=== PATIENT | female | born 1945 | race Caucasian/White ===

== ENCOUNTER → 2017-02-21 | Outpatient (CLI) | payer MEDICARE, OTHER ==
--- NOTE | 2017-02-21 09:29 | RADIOLOGY REPORT (SQ) ---
EXAM DESCRIPTION: CT ABD/PELVIS WITH IV ORAL COMPLETED DATE/TIME: 02/21/2017 8:51 am REASON FOR STUDY: LLQ PAIN (R10.32) R10.32 LEFT LOWER QUADRANT PAIN COMPARISON: 03/23/2014 TECHNIQUE: CT scan of the abdomen and pelvis performed using helical scanning technique with dynamic intravenous contrast injection. No oral contrast. Images reviewed with lung, soft tissue, and bone windows. Reconstructed coronal and sagittal MPR images reviewed. Delayed images for evaluation of the urinary system also acquired. All images stored on PACS. All CT scanners at this facility use dose modulation, iterative reconstruction, and/or weight based d osing when appropriate to reduce radiation dose to as low as reasonably achievable (ALARA). [facility]: Dose Right [facility]: CareDose [facility]: Dose Right [facility]: Teradose 4D [facility]: [employer]Rent CONTRAST TYPE AND DOSE: contrast/concentration: Isovue 370.00 mg/ml; Total Contrast Delivered: 56.0 ml; Total Saline Delivered: 65.0 ml RENAL FUNCTION: BUN 23, creatinine 0.92 RADIATION DOSE: Up-to-date CT equipment and radiation dose reduction techniques were employed. CTDIv ol: 2.9 - 3.3 mGy. DLP: 290 mGy-cm.. LIMITATIONS: None. FINDINGS: LOWER CHEST: No significant findings. No nodules or infiltrates. LIVER: Normal size. No masses. No dilated ducts. SPLEEN: Normal size. No focal lesions. PANCREAS: No masses. No significant calcifications. No adjacent inflammation or peripancreatic fluid collections. Pancreatic duct not dilated. GALLBLADDER: No identified stones by CT criteria. No inflammatory changes to suggest cholecystitis. ADRENAL GLANDS: No significant masses or asymmetry. RIGHT KIDNEY AND URETER: No solid masses. There are numerous right renal cysts. There are small no nobstructing stones. No hydronephrosis or hydroureter. LEFT KIDNEY AND URETER: No solid masses. There are numerous left renal cysts. There are small nono bstructing stones. No hydronephrosis or hydroureter. AORTA AND VESSELS: The aorta demonstrates atherosclerotic change. No aneurysmal dilatation. Celiac axis, SMA and renal arteries are patent. RETROPERITONEUM: No retroperitoneal adenopathy, hemorrhage or masses. BOWEL AND PERITONEAL CAVITY: No masses or inflammatory changes. No free fluid or peritoneal masses. There is diverticular change in the sigmoid colon. No acute diverticulitis. APPENDIX: Surgically absent. PELVIS: No mass. No free fluid. Normal bladder. ABDOMINAL WALL: No masses. No hernias. BONES: No significant or acute findings. OTHER: No other significant finding. IMPRESSION: NO SIGNIFICANT OR ACUTE FINDING IN THE ABDOMEN OR PELVIS ON CT SCAN WITH IV CONTRAST. TECHNICAL DOCUMENTATION: JOB ID: [id number] Quality ID # [id number]: Final reports with documentation of one or more dose reduction techniques (e.g., Au tomated exposure control, adjustment of the mA and/or kV according to patient size, use of iterative reconstruction technique) 2010 [employer]- All Rights Reserved
== END ==
LOC: RAD 07:50
PROVIDERS: ATTEND Internal Medicine Geriatric Medicine
DX: R10.32 Left lower quadrant pain (principal)
CPT/HCPCS: 74177

== ENCOUNTER → 2018-06-04 | Outpatient (CLI) | payer MEDICARE, OTHER ==
--- NOTE | 2018-06-04 09:34 | RADIOLOGY REPORT (SQ) ---
EXAM DESCRIPTION: CT ABD/PELVIS WITH IV ORAL COMPLETED DATE/TIME: 06/04/2018 8:44 am REASON FOR STUDY: LOWER ABD PAIN (R10.0) R10.0 ACUTE ABDOMEN COMPARISON: 02/21/2017 TECHNIQUE: CT scan of the abdomen and pelvis performed using helical scanning technique with dynamic intravenous contrast injection. No oral contrast. Images reviewed with lung, soft tissue, and bone windows. Reconstructed coronal and sagittal MPR images reviewed. Delayed images for evaluation of the urinary system also acquired. All images stored on PACS. All CT scanners at this facility use dose modulation, iterative reconstruction, and/or weight based d osing when appropriate to reduce radiation dose to as low as reasonably achievable (ALARA). [facility]: Dose Right [facility]: CareDose [facility]: Dose Right [facility]: Teradose 4D [facility]: [employer] CONTRAST TYPE AND DOSE: contrast/concentration: Isovue 350.00 mg/ml; Total Contrast Delivered: 62.0 ml; Total Saline Delivered: 65.0 ml 62 cc Omnipaque 350- low osmolar. RENAL FUNCTION: Creatinine 0.89, BUN 19 RADIATION DOSE: CT Rad equipment meets quality standard of care and radiation dose reduction techniq ues were employed. CTDIvol: 3.2 - 3.7 mGy. DLP: 331 mGy-cm.. LIMITATIONS: None. FINDINGS: LOWER CHEST: No significant findings. No nodules or infiltrates. LIVER: Normal size. No masses. No dilated ducts. SPLEEN: Normal size. No focal lesions. PANCREAS: No masses. No significant calcifications. No adjacent inflammation or peripancreatic fluid collections. Pancreatic duct not dilated. GALLBLADDER: Decompressed. No radiopaque gallstones. ADRENAL GLANDS: No significant masses or asymmetry. RIGHT KIDNEY AND URETER: No solid masses. Stable renal cysts, largest exophytic cyst measures 3.4 cm . Nonobstructing right renal stones, largest measuring 4 mm and stable from prior. No hydronephro sis or hydroureter. LEFT KIDNEY AND URETER: No solid masses. Stable lower pole cyst. Nonobstructing upper pole stones, largest measuring 4 mm. No hydronephrosis or hydroureter. AORTA AND VESSELS: Aortoiliac atherosclerosis. No aneurysm. RETROPERITONEUM: Shotty retroperitoneal and paracaval nodes without discrete adenopathy. BOWEL AND PERITONEAL CAVITY: No evidence of intestinal obstruction. No focal bowel wall thickening. APPENDIX: Surgically absent. PELVIS: Unremarkable urinary bladder. Surgically absent uterus. ABDOMINAL WALL: No masses. No hernias. BONES: No acute bony abnormality. No lytic or blastic osseous lesions. Lower lumbar facet arthropat hy. OTHER: No other significant finding. IMPRESSION: No evidence of acute intra-abdominal or pelvic process. No findings to explain patient' s symptoms. Additional stable chronic findings as above. TECHNICAL DOCUMENTATION: JOB ID: [id number] Quality ID # [id number]: Final reports with documentation of one or more dose reduction techniques (e.g., Au tomated exposure control, adjustment of the mA and/or kV according to patient size, use of iterative reconstruction technique) 2010 [employer]- All Rights Reserved Reading location - IP/workstation name: [email or web address]
== END ==
LOC: RAD 07:54
PROVIDERS: ATTEND Internal Medicine Geriatric Medicine
DX: R10.0 Acute abdomen (principal)
CPT/HCPCS: 74177

== ENCOUNTER → 2018-06-12 | Outpatient (CLI) | payer MEDICARE, OTHER ==
[2018-06-14 18:01] LABS: TESTOSTERONE FREE (DIRECT) 1.5 pg/mL (0.0-4.2)
== END ==
LOC: OD 09:43
PROVIDERS: ATTEND Internal Medicine Geriatric Medicine
DX: N95.2 Postmenopausal atrophic vaginitis (principal)
CPT/HCPCS: 36415; 82670; 83001; 84270; 84402; 84403

== ENCOUNTER → 2018-06-13 | Outpatient (CLI) | payer MEDICARE, OTHER ==
--- NOTE | 2018-06-13 11:27 | RADIOLOGY REPORT (SQ) ---
EXAM DESCRIPTION: DUPLEX ART/CYDNEY FLOW COMPLETE COMPLETED DATE/TIME: 06/13/2018 10:15 am REASON FOR STUDY: HTN (I10) I10 ESSENTIAL (PRIMARY) HYPERTENSION COMPARISON: CT abdomen pelvis 06/04/2018, 02/21/2017 TECHNIQUE: Realtime and static grayscale images acquired. Selected color Doppler, velocities and spe ctral images recorded. LIMITATIONS: None FINDINGS: RIGHT KIDNEY: RENAL ARTERY VELOCITIES: 96 cm/sec. Segmental artery velocity 78 cm/sec. RENAL VEIN: Color doppler flow present, patent. VELOCITY RATIO: Normal. Normal waveforms. KIDNEY: Normal size. Right upper pole 4 cm simple cyst. Tiny intrarenal nonobstructive stones. N o hydronephrosis. LEFT KIDNEY: RENAL ARTERY VELOCITIES: 130 cm/sec. Segmental artery velocity 59 cm/sec. RENAL VEIN: Color doppler flow present, patent. VELOCITY RATIO: Normal. Normal waveforms. KIDNEY: Normal size. Left lower pole 3 cm cortical cyst. Tiny mid and upper pole intrarenal stone s. No hydronephrosis. BLADDER: Normal. OTHER: No other significant finding. IMPRESSION: NO DOPPLER EVIDENCE OF HEMODYNAMICALLY SIGNIFICANT RENAL ARTERY STENOSIS. COMMENT: NORMAL RENAL ARTERY/AORTA VELOCITY RATIO IS LESS THAN OR EQUAL TO 3.5. TECHNICAL DOCUMENTATION: JOB ID: [id number] [employer]- All Rights Reserved Reading location - IP/workstation name: [email or web address]
== END ==
LOC: RAD 09:02
PROVIDERS: ATTEND Internal Medicine Geriatric Medicine
DX: I10 Essential (primary) hypertension (principal)
CPT/HCPCS: 93975